=== PATIENT | female | born 1940 ===

== ENCOUNTER 2019-01-12 06:01 | Inpatient (IN) | payer SELFPAY ==
[2019-01-12 08:42] LABS: BASO % 0.7 % (0.0-2.0); EOS # 0.2 K/uL (0.0-0.7); EOS % 3.2 % (0.0-4.0); HEMOGLOBIN 12.1 g/dL (12.0-16.0); LYMPH # 1.4 K/uL (1.0-4.3); LYMPH % 25.1 % (20.0-40.0); MEAN CELL VOLUME 89.2 fl (81.0-99.0); MEAN CORPUSCULAR HEMOGLOBIN 30.3 pg (27.0-31.0); MEAN CORPUSCULAR HGB CONC 33.9 g/dL (33.0-37.0); MEAN PLATELET VOLUME 7.3 fl (7.2-11.7); MONO # 0.5 K/uL (0.0-0.8); MONO % 9.6 % (0.0-10.0); NEUT # 3.5 K/uL (1.8-7.0); NEUT % 61.4 % (50.0-75.0); RBC 3.98 Mil/uL (3.80-5.20); RED CELL DISTRIBUTION WIDTH 13.4 % (11.5-14.5); WHITE BLOOD COUNT 5.7 K/uL (4.8-10.8)
[2019-01-12 08:54] LABS: ALB/GLOB RATIO 1.4 (1.0-2.1); ALBUMIN 4.1 g/dL (3.5-5.0); ALT/SGPT 21 U/L (9-52); AST/SGOT 20 U/L (14-36); BLOOD UREA NITROGEN 14 mg/dl (7-17); CALCIUM 9.5 mg/dL (8.4-10.2); GFR NON-AFRICAN AMERICAN > 60
[2019-01-12 08:54] LABS: SQUAMOUS EPITHIAL < 1 /hpf (0-5); URINE BACTERIA RARE (<OCC); URINE BILIRUBIN NEGATIVE (NEGATIVE); URINE BLOOD NEGATIVE (NEGATIVE); URINE CLARITY SLIGHTY-CLOUDY (Clear); URINE COLOR YELLOW (YELLOW); URINE GLUCOSE (UA) NEG (NEGATIVE); URINE HYALINE CAST 0-2 /hpf (0-2); URINE LEUKOCYTE ESTERASE LARGE Leu/uL (Negative); URINE PROTEIN NEGATIVE (NEGATIVE); URINE UROBILINOGEN 0.2-1.0 mg/dL (0.2-1.0)
[2019-01-12 09:24] LABS: BARBITURATES, UR NEGATIVE (NEGATIVE); BENZODIAZEPINES, UR NEGATIVE (NEGATIVE); OPIATES, UR NEGATIVE (NEGATIVE); PHENCYCLIDINE, UR NEGATIVE (NEGATIVE)
--- NOTE | 2019-01-12 09:54 | CT ---
Date of service: 01/12/2019 PROCEDURE: CT HEAD WITHOUT CONTRAST. HISTORY: r/o ICH rule out intracranial hemorrhage. COMPARISON: None available. TECHNIQUE: Axial computed tomography images were obtained through the head/brain without intravenous contrast. Radiation dose: Total exam DLP = 781.1 mGy-cm. This CT exam was performed using one or more of the following dose reduction techniques: Automated exposure control, adjustment of the mA and/or kV according to patient size, and/or use of iterative reconstruction technique. FINDINGS: HEMORRHAGE: No acute parenchymal, subarachnoid or extra-axial hemorrhage. BRAIN: Mild to moderate diffuse and confluent chronic periventricular white matter ischemic changes seen extending peripherally into the deep and subcortical white matter both cerebral hemispheres. There is also some extension of these changes into the white matter tracts of both basal nuclei. Moderate-significant generalized volume loss. Mild vascular calcifications. VENTRICLES: No obstructive hydrocephalus. CALVARIUM: Unremarkable. PARANASAL SINUSES: Unremarkable as visualized. No significant inflammatory changes. MASTOID AIR CELLS: Unremarkable as visualized. No inflammatory changes. OTHER FINDINGS: None. IMPRESSION: No acute intracranial hemorrhage Mild to moderate diffuse and confluent chronic periventricular white matter ischemic changes seen extending peripherally into the deep and subcortical white matter both cerebral hemispheres. There is also some extension of these changes into the white matter tracts of both basal nuclei. Moderate-significant generalized volume loss.
--- NOTE | 2019-01-12 11:35 | ED PDOC ---
HPI: Psych/Substance Abuse Time Seen by Provider: 01/12/19 07:05 Chief Complaint (Nursing): Psychiatric Evaluation Chief Complaint (Provider): confusion ED Caveat: Psychotic, Language Barrier History Per: Patient, EMS History/Exam Limitations: clinical condition, language barrier Onset/Duration Of Symptoms: Unknown Current Symptoms Are (Timing): Still Present Associated Symptoms: Paranoia Involuntary Hold By: Emergency Physician Additional Complaint(s): 78yo female per EMR first time to [facility], presented via EMS, she reportedly stopped the police when she was concerned the snf she was residing at was calling immigration on her, and she heard "them saying I was sleeping around". Language barrier difficult, patient does speak some portuguese but intermixed with hebrew, [employer] translator interpreter attempted but she refused to use translator interpreter machine. Dr Carcamo who is fluent in hebrew assisted and confirmed above. States she has also lived in [place] and "[place]". Unclear medical history. Past Medical History Reviewed: Historical Data, Nursing Documentation, Vital Signs Vital Signs: Last Vital Signs Temp 97.9 F 01/12/19 06:09 Pulse 81 01/12/19 06:09 Resp 16 01/12/19 06:09 BP 193/81 H 01/12/19 06:09 Pulse Ox 97 01/12/19 06:09 - Medical History PMH: HTN - Family History Family History: States: Unknown Family Hx - Living Arrangements Living Arrangements: Other - Social History Current smoker - smoking cessation education provided: No - Immunization History Hx Tetanus Toxoid Vaccination: No Hx Influenza Vaccination: No Hx Pneumococcal Vaccination: No - Home Medications Home Medications: Ambulatory Orders Medication Instructions Recorded Risperidone [Risperdal] 1 mg PO DAILY 01/12/19 - Allergies Allergies/Adverse Reactions: Allergies Allergy/AdvReac Type Severity Reaction Status Date / Time Unobtainable Allergy Verified 06/22/18 01:44 Review of Systems Review Of Systems: ROS cannot be obtained secondary to pt's inabilty to answer questions. (confused/paranoia) Physical Exam - Reviewed Nursing Documentation Reviewed: Yes Vital Signs Reviewed: Yes - Physical Exam Appears: Positive for: Non-toxic Head Exam: Positive for: ATRAUMATIC, NORMAL INSPECTION, NORMOCEPHALIC Skin: Positive for: Normal Color, Warm, DRY Eye Exam: Positive for: EOMI, Normal appearance, PERRL ENT: Positive for: Normal ENT Inspection Neck: Positive for: Normal, Painless ROM Cardiovascular/Chest: Positive for: Regular Rate, Rhythm Respiratory: Negative for: Respiratory Distress Pulses-Radial (L): 3+/4+ Pulses-Radial (R): 3+/4+ Gastrointestinal/Abdominal: Positive for: Soft. Negative for: Tenderness Back: Positive for: Normal Inspection Extremity: Positive for: Normal ROM Neurological/Psych: Positive for: Awake, Alert, Normal Tone, Mood/Affect (anxious, pressured speech, poor insight) - Laboratory Results Result Diagrams: 01/12/19 07:30 01/12/19 07:30 Lab Results: Total Bilirubin 0.4 mg/dl (0.2-1.3) 01/12/19 07:30 AST 20 U/L (14-36) 01/12/19 07:30 ALT 21 U/L (9-52) 01/12/19 07:30 Alkaline Phosphatase 96 U/L (38-126) 01/12/19 07:30 Total Protein 6.9 G/DL (6.3-8.2) 01/12/19 07:30 Albumin 4.1 g/dL (3.5-5.0) 01/12/19 07:30 Globulin 2.8 gm/dL (2.2-3.9) 01/12/19 07:30 Albumin/Globulin Ratio 1.4 (1.0-2.1) 01/12/19 07:30 Urine Color Yellow (YELLOW) 01/12/19 07:20 Urine Clarity Slighty-cloudy (Clear) 01/12/19 07:20 Urine pH 7.0 (5.0-8.0) 01/12/19 07:20 Ur Specific [place] 1.013 (1.003-1.030) 01/12/19 07:20 Urine Protein Negative mg/dL (NEGATIVE) 01/12/19 07:20 Urine Glucose (UA) Neg mg/dL (NEGATIVE) 01/12/19 07:20 Urine Ketones Negative mg/dL (NEGATIVE) 01/12/19 07:20 Urine Blood Negative (NEGATIVE) 01/12/19 07:20 Urine Nitrate Negative (NEGATIVE) 01/12/19 07:20 Urine Bilirubin Negative (NEGATIVE) 01/12/19 07:20 Urine Urobilinogen 0.2-1.0 mg/dL (0.2-1.0) 01/12/19 07:20 Ur Leukocyte Esterase Large Luis/uL (Negative) 01/12/19 07:20 Urine RBC (Auto) 2 /hpf (0-3) 01/12/19 07:20 Urine Microscopic WBC 12 /hpf (0-5) H 01/12/19 07:20 Ur Squamous Epith Cells < 1 /hpf (0-5) 01/12/19 07:20 Urine Bacteria Rare (<OCC) 01/12/19 07:20 Hyaline Casts 0-2 /hpf (0-2) 01/12/19 07:20 Urine Yeast (Budding) Occ /hpf (NEGATIVE) H 01/12/19 07:20 - ECG O2 Sat by Pulse Oximetry: 97 Medical Decision Making Medical Decision Making: labs and CT brain ordered 1:1 Obs Accession No. : [id number] Patient Name / ID : LUIS MANUEL MCCRARY / [id number] Exam Date : 01/12/2019 08:36:23 ( Approved ) Study Comment : Sex / Age : F / 78Y Creator : Shawn Griffin MD Dictator : Shawn Griffin MD Director Women : [employer] : Shawn Griffin MD Approver2 : Report Date : 01/12/2019 09:50:58 My Comment : Date of service: 01/12/2019 PROCEDURE: CT HEAD WITHOUT CONTRAST. HISTORY: r/o ICH rule out intracranial hemorrhage. COMPARISON: None available. TECHNIQUE: Axial computed tomography images were obtained through the head/brain without intravenous contrast. Radiation dose: Total exam DLP = 781.1 mGy-cm. This CT exam was performed using one or more of the following dose reduction techniques: Automated exposure control, adjustment of the mA and/or kV according to patient size, and/or use of iterative reconstruction technique. FINDINGS: HEMORRHAGE: No acute parenchymal, subarachnoid or extra-axial hemorrhage. BRAIN: Mild to moderate diffuse and confluent chronic periventricular white matter ischemic changes seen extending peripherally into the deep and subcortical white matter both cerebral hemispheres. There is also some extension of these changes into the white matter tracts of both basal nuclei. Moderate-significant generalized volume loss. Mild vascular calcifications. VENTRICLES: No obstructive hydrocephalus. CALVARIUM: Unremarkable. PARANASAL SINUSES: Unremarkable as visualized. No significant inflammatory changes. MASTOID AIR CELLS: Unremarkable as visualized. No inflammatory changes. OTHER FINDINGS: None. IMPRESSION: No acute intracranial hemorrhage Mild to moderate diffuse and confluent chronic periventricular white matter ischemic changes seen extending peripherally into the deep and subcortical white matter both cerebral hemispheres. There is also some extension of these changes into the white matter tracts of both basal nuclei. Moderate-significant generalized volume loss. Crisis eval performed, recommended admission for stabilization, signed consent after risks and benefits explained. Patient is AAOx3. medically stable for [facility] admission at time of evaluation. Disposition - Clinical Impression Clinical Impression: Schizophrenia - Patient ED Disposition Is Patient to be Admitted: Yes Counseled Patient/Family Regarding: Studies Performed, Diagnosis, Need For Followup - Disposition Disposition Time: 10:05 Condition: FAIR - Pt Status Changed To: Hospital Disposition Of: Inpatient - Admit Certification Admit to Inpatient:: After my assessment, the patient will require hospitalization for at least two midnights. This is because of the severity of symptoms shown, intensity of services needed, and/or the medical risk in this patient being treated as an outpatient.
[2019-01-12] MEDS ORDERED: Magnesium Hydroxide Susp 30 ml UD PO PRN (14:00)
[2019-01-12] MEDS ORDERED: Alum-Mag Hydrox-Simethicone Susp (30 mL) PO PRN (14:00)
[2019-01-12] MEDS ORDERED: Bismuth Subsalicylate 262 mg/15 ml Sus (240 ml) PO PRN (14:00)
--- NOTE | 2019-01-12 14:40 | CP.PCM.CON ---
History of Present Illness - History of Present Illness History of Present Illness: 78 yo female brought in by police because of weird behaviour. Review of Systems - Review of Systems All systems: reviewed and no additional remarkable complaints except (aside from those mentioned above, 12 point system review were negative by me) Past Patient History - Infectious Disease Hx of Infectious Diseases: None - Tetanus Immunizations Tetanus Immunization: Unknown - Past Social History Smoking Status: Never Smoked Chewing Tobacco Use: No Cigar Use: No Alcohol: None Drugs: Denies Home Situation {Lives}: Homeless - CARDIAC Hx Cardiac Disorders: No - PULMONARY Hx Tuberculosis: No - NEUROLOGICAL HX Cerebrovascular Accident: No Hx Seizures: No - HEMATOLOGICAL/ONCOLOGICAL Hx Cancer: No Hx Human Immunodeficiency Virus (HIV): No - GENITOURINARY/GYNECOLOGICAL Hx Sexually Transmitted Disorders: No - PSYCHIATRIC Hx Substance Use: No - SURGICAL HISTORY Hx Surgeries: No - ANESTHESIA Hx Anesthesia: No Meds Allergies/Adverse Reactions: Allergies Allergy/AdvReac Type Severity Reaction Status Date / Time Unobtainable Allergy Verified 06/22/18 01:44 - Medications Medications: Current Medications Acetaminophen (Tylenol 325mg Tab) 650 mg PO Q4 PRN PRN Reason: Pain, moderate (4-7) Al Hydrox/Mg Hydrox/Simethicone (Maalox Plus 30 Ml) 30 ml PO Q4 PRN PRN Reason: Dyspepsia Bismuth Subsalicylate (Pepto-Bismol) 524 mg PO Q4 PRN PRN Reason: Diarrhea Cephalexin Monohydrate (Keflex) 500 mg PO Q12 CONOR; Protocol Lorazepam (Ativan) 0.5 mg PO HS PRN PRN Reason: Insomnia Stop: 01/26/19 14:01 Lorazepam (Ativan) 0.5 mg PO Q6 PRN PRN Reason: Anixety/Agitation Stop: 01/26/19 14:01 Magnesium Hydroxide (Milk Of Magnesia) 30 ml PO HS PRN PRN Reason: Constipation Trazodone HCl (Desyrel) 25 mg PO HS PRN PRN Reason: Anxiety Physical Exam - Constitutional Appears: No Acute Distress - Head Exam Head Exam: ATRAUMATIC - Eye Exam Eye Exam: absent: Scleral icterus - ENT Exam ENT Exam: Mucous Membranes Moist - Neck Exam Neck exam: Negative for: Meningismus - Respiratory Exam Respiratory Exam: absent: Rales, Rhonchi, Wheezes, Respiratory Distress - Cardiovascular Exam Cardiovascular Exam: REGULAR RHYTHM, +S1, +S2 - GI/Abdominal Exam GI & Abdominal Exam: Soft. absent: Tenderness - Rectal Exam Rectal Exam: Deferred - Neurological Exam Neurological exam: Alert - Psychiatric Exam Psychiatric exam: Normal Affect - Skin Skin Exam: Dry, Intact Results - Vital Signs Recent Vital Signs: Last Vital Signs Temp 98.7 F 01/12/19 13:27 Pulse 72 01/12/19 13:27 Resp 16 01/12/19 13:27 BP 136/65 01/12/19 13:27 Pulse Ox 96 01/12/19 12:17 - Labs Result Diagrams: 01/12/19 07:30 01/12/19 07:30 Labs: Laboratory Results - last 24 hr 01/12/19 01/12/19 01/12/19 07:20 07:20 07:30 WBC RBC Hgb Hct MCV MCH MCHC RDW Plt Count MPV Neut % (Auto) Lymph % (Auto) [place] % (Auto) Eos % (Auto) Baso % (Auto) Neut # (Auto) Lymph # (Auto) [place] # (Auto) Eos # (Auto) Baso # (Auto) Sodium 140 Potassium 3.8 Chloride 106 Carbon Dioxide 26 Anion Gap 12 BUN 14 Creatinine 0.6 L Est GFR ( Amer) > 60 Est GFR (Non-Af Amer) > 60 POC Glucose (mg/dL) Random Glucose 100 Calcium 9.5 Total Bilirubin 0.4 AST 20 ALT 21 Alkaline Phosphatase 96 Total Protein 6.9 Albumin 4.1 Globulin 2.8 Albumin/Globulin Ratio 1.4 Urine Color Yellow Urine Clarity Slighty-cloudy Urine pH 7.0 Ur Specific [place] 1.013 Urine Protein Negative Urine Glucose (UA) Neg Urine Ketones Negative Urine Blood Negative Urine Nitrate Negative Urine Bilirubin Negative Urine Urobilinogen 0.2-1.0 Ur Leukocyte Esterase Large Urine RBC (Auto) 2 Urine Microscopic WBC 12 H Ur Squamous Epith Cells < 1 Urine Bacteria Rare Hyaline Casts 0-2 Urine Yeast (Budding) Occ H Urine Opiates Screen Negative Urine Methadone Screen Negative Ur Barbiturates Screen Negative Ur Phencyclidine Scrn Negative Ur Amphetamines Screen Negative U Benzodiazepines Scrn Negative U Oth Cocaine Metabols Negative U Cannabinoids Screen Negative Alcohol, Quantitative < 10 01/12/19 01/12/19 07:30 07:34 WBC 5.7 RBC 3.98 Hgb 12.1 Hct 35.5 MCV 89.2 MCH 30.3 MCHC 33.9 RDW 13.4 Plt Count 256 MPV 7.3 Neut % (Auto) 61.4 Lymph % (Auto) 25.1 [place] % (Auto) 9.6 Eos % (Auto) 3.2 Baso % (Auto) 0.7 Neut # (Auto) 3.5 Lymph # (Auto) 1.4 [place] # (Auto) 0.5 Eos # (Auto) 0.2 Baso # (Auto) 0.0 Sodium Potassium Chloride Carbon Dioxide Anion Gap BUN Creatinine Est GFR ( Amer) Est GFR (Non-Af Amer) POC Glucose (mg/dL) 123 H Random Glucose Calcium Total Bilirubin AST ALT Alkaline Phosphatase Total Protein Albumin Globulin Albumin/Globulin Ratio Urine Color Urine Clarity Urine pH Ur Specific [place] Urine Protein Urine Glucose (UA) Urine Ketones Urine Blood Urine Nitrate Urine Bilirubin Urine Urobilinogen Ur Leukocyte Esterase Urine RBC (Auto) Urine Microscopic WBC Ur Squamous Epith Cells Urine Bacteria Hyaline Casts Urine Yeast (Budding) Urine Opiates Screen Urine Methadone Screen Ur Barbiturates Screen Ur Phencyclidine Scrn Ur Amphetamines Screen U Benzodiazepines Scrn U Oth Cocaine Metabols U Cannabinoids Screen Alcohol, Quantitative Assessment & Plan (1) Schizophrenia Status: Acute Comment: psyche is managing (2) UTI (urinary tract infection) Status: Acute Comment: continue Keflex. follow up urine culture
--- NOTE | 2019-01-12 15:15 | PCM.BM ---
<Shalonda Alonzo - Last Filed: 01/12/19 15:23> Treatment Plan Problems - Problems identified on initial assessmt delusions Date Initiated: 01/12/19 Time Initiated: 15:13 Date resolved: 01/18/19 Assessment reference: HP Status: Active Priority: 1 thought process Date Initiated: 01/12/19 Time Initiated: 15:14 Date resolved: 01/18/19 Assessment reference: HP Priority: 2 knowledge defficit Date Initiated: 01/12/19 Time Initiated: 15:23 Date resolved: 01/18/19 Assessment reference: HP Status: Active Priority: 3 Treatment assets and liabiliti Patient Assests: cooperative, physically healthy Patient Liabilities: live alone, medical problems, language/speech - Milieu Protocol Maintain good personal hygiene: every shift Encourage regular showers, every shift Remind patient to perform daily oral care, every shift Assist patient to perform ADL's Maintain personal safety: every shift Educate patient to report safety concerns to staff, every shift Monitor environment for contraband/sharps Medication safety: Monitor for expected outcome, potential side effects: every shift, Assess barriers to learning: every shift, Assess readiness for medication education: every shift <Otto Luque - Last Filed: 01/13/19 13:48> Family Contact Family involvement: Famliy/SO not involved Family contact name: Pt's daughter resides in [facility]. Family contacted how many times per week?: 2 - Goals for Treatment Patient goals for treatment: Pt lacks insight into her current illness and cannot speak with staff due to language barrier so no specific goals for treatment could be obtained Discharge/Continuing Care - Education Needs Education Needs: Patient Medication, Patient Diagnosis/Disease Process, Patient Coping Skills, Patient Aftercare Safety Plan - Discharge Discharge Criteria: Tolerates medication w/o severe side effects, Free of paranoid thoughts, Free of agitation, Normal sleep pattern, Ability to care for self, Reduction of target symptoms Discharge to:: [facility] - Treatment Team Participation Discussed with Family/SO: No Was Patient/Family/SO present at Treatment Team Meeting: Yes <Brittani Bertrand - Last Filed: 01/14/19 11:26> - Diagnosis (1) Schizophrenia Status: Acute Interventions: Medication management, Individual and group therapy, Psychoeducation 01/14/19 11:26 <Norma Yin - Last Filed: 01/14/19 14:52> Family Contact Family involvement: Famliy/SO not involved Discharge/Continuing Care - Education Needs Education Needs: Patient Medication, Patient Diagnosis/Disease Process, Patient Coping Skills, Patient Placement options, Patient Community resources, Patient Uses of Medical Equipment, Patient Health Practices/Safety, Patient Personal Hygiene/Grooming, Patient Aftercare Safety Plan - Discharge Discharge Criteria: Tolerates medication w/o severe side effects, Free of paranoid thoughts, Free of agitation, Normal sleep pattern, Ability to care for self, Reduction of target symptoms Discharge to:: [facility] - Additional Comments 01/14/19 14:37 Pt seen and discussed in team meeting Pt is Latvian speaking [employer] Interpret # [id number] used. Call Specialist named Twyla attempted to explain to pt the purpose of the team meeting; however, per per diem interpreter pt was difficult to engage in conversation. Call Specialist reported that pt stated "my life is miserable and I'm going to call the police and the police is going to come." Reportedly, pt also stated that someone i coming here to pick her up. Interdisciplinary team attempted to gather additional information form pt via per diem interpreter; however, pt refused to answer any of the questions and became restless and irritable. Per per diem interpreter pt was using inappropriate language and uncooperative. Interdisciplinary team will try to assess pt tomorrow. Tx plan reviewed amongst interdisciplinary team members. SW to contact community resources provided by ED and pt at time of ED assessment. SW to confirm medications and obtain collateral information. - Treatment Team Participation Discussed with Family/SO: No Was Patient/Family/SO present at Treatment Team Meeting: Yes
--- NOTE | 2019-01-12 16:40 | RAD ---
Date of service: 01/12/2019 HISTORY: SOB COMPARISON: No prior. TECHNIQUE: 1 view obtained. FINDINGS: LUNGS: Multiple tiny radiopaque densities right upper lobe likely representing calcifications are or calcified granulomata possibly in a localized area of chronic bronchiectasis. Clinical correlation recommended. Follow-up nonemergent CT scan of the chest could be performed for further evaluation. PLEURA: No significant pleural effusion identified, no pneumothorax apparent. CARDIOVASCULAR: Aortic atherosclerotic calcification present. Heart size within range of normal. Additionally, there are calcified mediastinal hilar lymph nodes as well suggesting prior exposure to a granulomatous disease process. Clinical correlation recommended. OSSEOUS STRUCTURES: No significant abnormalities. VISUALIZED UPPER ABDOMEN: Normal. OTHER FINDINGS: None. IMPRESSION: No acute consolidation. Multiple tiny radiopaque densities right upper lobe likely representing calcifications are or calcified granulomata possibly in a localized area of chronic bronchiectasis. Clinical correlation recommended. Follow-up nonemergent CT scan of the chest could be performed for further evaluation.
[2019-01-13 08:19] LABS: IRON 105 ug/dL (37-170)
[2019-01-13 08:29] LABS: % IRON SATURATION 37 % (20-55); TOTAL IRON BINDING CAPACITY 279 ug/dL (250-450)
[2019-01-13 11:32] VITALS: O2SAT 97
--- NOTE | 2019-01-13 12:18 | PCM.PSYCH ---
Initial Psychiatric Evaluation - Initial Psychiatric Evaluation History of Present Illness and Precipitating Events: pt is 78 ys old Lebanese female with unclear previous psychiatric history brought to ER by police after she was found wandering on the street pt on evaluation in ER presented with paranoid delusions, reported that she feels that the immigration is after her and that people on the street are targetiong her the senior copywriter attempted to evaluate patient using VOYCE , pt became very irritable and paranoid, indicated that she understands that this is a machine from the immigration and refused to proceed with the interview , pt presenting with delusions of persecution , irritable mood and affect, speaking little palestinian denied command hallucinations , denied suicidal or homicidal ideation Information obtained by treating physician in ER PT REPORTED THAT SHE HAS NO FAMILY IN THIS COUNTRY SHE REPORTED THAT PEOPLE ARE CONSTANTLY LOOKING AT HER IN A WIERD WAY AND SHE BELIEVES THAT SHE IS BEING FOLLOWED. THE PT REPORTED THAT SHE WAS PREVIOUSLY HOSPITALIZED IN [place] AND SHE ATTENDS THE OUTPATIENT PROGRAM AT [place]. SHE REPORTED SHE HAS AN APPOINTMENT IN JANUARY BUT BOLIVAR S NOT REMEMBER WHEN EXACTLY Current Medications: Active Medications Generic Name Dose Route Start Last Admin Trade Name Freq PRN Reason Stop Dose Admin Acetaminophen 650 mg 01/12/19 14:00 Tylenol 325mg Tab PO Q4 PRN Pain, moderate (4-7) Al Hydrox/Mg Hydrox/Simethicone 30 ml 01/12/19 14:00 Maalox Plus 30 Ml PO Q4 PRN Dyspepsia Bismuth Subsalicylate 524 mg 01/12/19 14:00 Pepto-Bismol PO Q4 PRN Diarrhea Cephalexin Monohydrate 500 mg 01/12/19 21:00 01/13/19 08:50 Keflex PO 500 mg Q12 CONOR Administration Protocol Lorazepam 0.5 mg 01/12/19 14:00 Ativan PO 01/26/19 14:01 HS PRN Insomnia Lorazepam 0.5 mg 01/12/19 14:00 Ativan PO 01/26/19 14:01 Q6 PRN Anixety/Agitation Magnesium Hydroxide 30 ml 01/12/19 14:00 Milk Of Magnesia PO HS PRN Constipation Risperidone 0.5 mg 01/13/19 11:30 Risperdal M-Tab PO DAILY CONOR Risperidone 0.5 mg 01/13/19 22:00 Risperdal M-Tab PO HS CONOR Trazodone HCl 25 mg 01/12/19 14:09 Desyrel PO HS PRN Anxiety Past Psychiatric History - Past Psychiatric History Explanation of prior treatment: PER PT HX OF PREVIOUS HOSPITALIZATION AT [facility] Pertinent Medical Hx (Current Medical&Sleep Prob, Allergies): Allergies Allergy/AdvReac Type Severity Reaction Status Date / Time Unobtainable Allergy Verified 06/22/18 01:44 Risperidone [Risperdal] 1 mg PO DAILY 01/12/19 Mental Status Examination - Personal Presentation Personal Presentation: Looks stated age - Affect Affect: Constricted - Motor Activity Motor Activity: Psychomotor Agitation - Reliability in Providing Information Reliability in Providing Information: Poor, due to alteration in thoughts, Poor, due to altered mood - Speech Speech: Tangential - Mood Mood: Anxious - Formal Thought Process Formal Thought Process: Delusions, Paranoia - Cognitive Functions Orientation: Person Sensorium: Alert Attention/Concentration: Easily distracted Judgement: Imparied, as evidence by: Poor judgement, Imparied, as evidence by: Lack of insight into illness - Risk Risk: Diminished functioning - Strength & Assets Inventory Strength & Assets Inventory: Life experience - Limitations Additional comments: POOR SOCIAL SUPPORT DSM 5 DX - DSM 5 DSM 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
[2019-01-13] MEDS: Risperidone M tab 0.5MG PO SCH (13:21)
--- NOTE | 2019-01-13 17:50 | CARD ---
APPROVED REPORT Date of service: 01/12/2019 EKG Measurement Heart [id number] <Conclusion> Normal sinus rhythm Incomplete right bundle branch block Otherwise normal ECG
[2019-01-13] MEDS ORDERED: Risperidone M tab 0.5MG PO SCH (22:00)
[2019-01-14] MEDS: Risperidone M tab 0.5MG PO SCH (09:17)
--- NOTE | 2019-01-14 11:23 | PCM.PYCHPN ---
Psychiatric Progress Note - Psychiatric Progress Note Patient seen today, length of contact: Pt evaluated, case discussed w/ team, chart reviewed Patient Chief Complaint: "I'm going to call the police." Problems Identified/Issues Discussed: Fitness Consultant and treatment team attempted to speak with the patient using diplomatic interpreter/translator #[id number]. Patient refused to speak w/ staff writer. She was disorganized, threatening to call the police, cursing at staff. Refusing to speak taiwanese or use the diplomatic interpreter/translator. She left the treatment team meeting angrily. Patient is labile and difficult to direct. Medication Change: Yes (Increase Risperdal) Medical Record Reviewed: Yes Consults ordered or reviewed: Medicine consult Mental Status Examination - Cognitive Function Orientation: Person Decription of patient's judgement and insights: Poor I/J - Mood Mood: Anxious - Affect Affect: Other (Labile, irritable) - Speech Speech: Loud - Formal Thought Process Formal Thought Process: Delusions, Paranoia, Loosening of associations Psychotic Thoughts and Behaviors: +Paranoia - Suicidal Ideation Suicidal Ideation: No - Homicidal Ideation Homicidal Ideation: No Goal/Treatment Plan - Goal/Treatment Plan Need for Continued Stay: Remain at risks for inpatient hospitalization, Discharge may exacerbated symptoms Progress Toward Problem(s) and Goals/Treatment Plan: Schizophrenia vs schizoaffective disorder vs Major neurocognitive disorder w/ psychosis -Increase Risperdal -Medicine consult -Individual and group therapy -Psychoeducation -Disposition planning
[2019-01-14] MEDS: Risperidone M tab 1 MG PO SCH (21:05)
[2019-01-14 21:56] LABS: FOLATE 18.2 ng/mL
[2019-01-15] MEDS: Risperidone M tab 1 MG PO SCH ×2 (08:30→21:09)
--- NOTE | 2019-01-15 09:21 | PCM.PYCHPN ---
Psychiatric Progress Note - Psychiatric Progress Note Patient seen today, length of contact: Pt evaluated, case discussed w/ team, chart reviewed Patient Chief Complaint: "I'm going to call the police." Problems Identified/Issues Discussed: Patient continues to be irritable, paranoid, unwilling to engage in interview with telegraphic typewriter repairer. She continues to threaten to call the police. Refusing to speak tamazight or use the percher. Medication Change: Yes (Increase Risperdal) Medical Record Reviewed: Yes Consults ordered or reviewed: Medicine consult Mental Status Examination - Cognitive Function Decription of patient's judgement and insights: Poor I/J - Mood Mood: Anxious - Affect Affect: Other (Labile, irritable) - Speech Speech: Loud - Formal Thought Process Formal Thought Process: Delusions, Paranoia, Loosening of associations Psychotic Thoughts and Behaviors: +Paranoia - Suicidal Ideation Suicidal Ideation: No - Homicidal Ideation Homicidal Ideation: No Goal/Treatment Plan - Goal/Treatment Plan Need for Continued Stay: Remain at risks for inpatient hospitalization, Discharge may exacerbated symptoms Progress Toward Problem(s) and Goals/Treatment Plan: Schizophrenia vs schizoaffective disorder vs Major neurocognitive disorder w/ psychosis -Increase Risperdal -Medicine consult -Individual and group therapy -Psychoeducation -Obtain collateral history -Disposition planning
[2019-01-16] MEDS: Risperidone M tab 1 MG PO SCH (08:34)
--- NOTE | 2019-01-16 11:35 | PCM.PYCHPN ---
Psychiatric Progress Note - Psychiatric Progress Note Patient seen today, length of contact: Pt evaluated, case discussed w/ team, chart reviewed Patient Chief Complaint: "I'm going to call the police." Problems Identified/Issues Discussed: Patient continues to be irritable, labile, paranoid, refusing to use the manager wellness services due to paranoia. Refusing to speak Tamazight w/ specifications writer. As per medical records obtained, patient has a history of treatment w/ Risperdal and also a history of treatment with Zyprexa 15 mg PO HS. Medication Change: Yes (Increase Risperdal) Medical Record Reviewed: Yes Consults ordered or reviewed: Medicine consult Mental Status Examination - Cognitive Function Orientation: Person - Mood Mood: Anxious - Affect Affect: Other (Labile, irritable) - Speech Speech: Loud - Formal Thought Process Formal Thought Process: Delusions, Paranoia, Loosening of associations Psychotic Thoughts and Behaviors: +Paranoia - Suicidal Ideation Suicidal Ideation: No - Homicidal Ideation Homicidal Ideation: No Goal/Treatment Plan - Goal/Treatment Plan Need for Continued Stay: Remain at risks for inpatient hospitalization, Discharge may exacerbated symptoms Progress Toward Problem(s) and Goals/Treatment Plan: Schizophrenia r/o Major neurocognitive disorder -Increase Risperdal -Medicine consult -Individual and group therapy -Psychoeducation -Disposition planning
[2019-01-16] MEDS: Risperidone M TAB 2 MG PO SCH (21:09)
[2019-01-17] MEDS: Risperidone M tab 1 MG PO SCH (08:09)
--- NOTE | 2019-01-17 10:07 | PCM.PYCHPN ---
Psychiatric Progress Note - Psychiatric Progress Note Patient seen today, length of contact: Pt evaluated, case discussed w/ team, chart reviewed Patient Chief Complaint: "I'm going to call the police." Problems Identified/Issues Discussed: Patient is calmer and less irritable, but she continues to be paranoid and continues to refuse to use the paver operator due to acute paranoia. No adverse effects to medications observed. Medication Change: No Medical Record Reviewed: Yes Consults ordered or reviewed: Medicine consult Mental Status Examination - Cognitive Function Orientation: Person - Mood Mood: Anxious - Affect Affect: Other (Labile, irritable) - Speech Speech: Loud - Formal Thought Process Formal Thought Process: Delusions, Paranoia, Loosening of associations Psychotic Thoughts and Behaviors: +Paranoia - Suicidal Ideation Suicidal Ideation: No - Homicidal Ideation Homicidal Ideation: No Goal/Treatment Plan - Goal/Treatment Plan Need for Continued Stay: Remain at risks for inpatient hospitalization, Discharge may exacerbated symptoms Progress Toward Problem(s) and Goals/Treatment Plan: Schizophrenia; r/o Major neurocognitive disorder -Continue Risperdal -Medicine consult -Individual and group therapy -Psychoeducation -Disposition planning
--- NOTE | 2019-01-17 15:50 | PCM.BM ---
Treatment Plan Problems - Problems identified on initial assessmt delusions Date Initiated: 01/12/19 Time Initiated: 15:13 Date resolved: 01/18/19 Assessment reference: HP Status: Active Priority: 1 thought process Date Initiated: 01/12/19 Time Initiated: 15:14 Date resolved: 01/18/19 Assessment reference: HP Status: Active Priority: 2 knowledge defficit Date Initiated: 01/12/19 Time Initiated: 15:23 Date resolved: 01/18/19 Assessment reference: HP Status: Active Priority: 3 impaired communication Date Initiated: 01/12/19 Time Initiated: 15:50 Date resolved: 01/28/19 Assessment reference: NA Status: Active Priority: 4 Treatment assets and liabiliti Patient Assests: cooperative, physically healthy Patient Liabilities: live alone, medical problems, language/speech - Milieu Protocol Maintain good personal hygiene: every shift Encourage regular showers, every shift Remind patient to perform daily oral care, every shift Assist patient to perform ADL's Maintain personal safety: every shift Educate patient to report safety concerns to staff, every shift Monitor environment for contraband/sharps Medication safety: Monitor for expected outcome, potential side effects: every shift, Assess barriers to learning: every shift, Assess readiness for medication education: every shift Milieu Narrative: Schizophrenia; r/o Major neurocognitive disorder -Continue Risperdal -Medicine consult -Individual and group therapy -Psychoeducation -Disposition planning Family Contact Family involvement: Famliy/SO not involved - Goals for Treatment Patient goals for treatment: Pt lacks insight into her current illness and cannot speak with staff due to language barrier so no specific goals for treatment could be obtained Discharge/Continuing Care - Education Needs Education Needs: Patient Medication, Patient Diagnosis/Disease Process, Patient Coping Skills, Patient Placement options, Patient Community resources, Patient Uses of Medical Equipment, Patient Health Practices/Safety, Patient Personal Hygiene/Grooming, Patient Aftercare Safety Plan - Discharge Discharge Criteria: Tolerates medication w/o severe side effects, Free of paranoid thoughts, Free of agitation, Normal sleep pattern, Ability to care for self, Reduction of target symptoms Discharge to:: Residential - Additional Comments 01/14/19 14:37 Pt seen and discussed in team meeting Pt is Romanian speaking Ria Interpret # [id number] used. Handle Bender named Twyla attempted to explain to pt the purpose of the team meeting; however, per lang interpreter pt was difficult to engage in conversation. Handle Bender reported that pt stated "my life is miserable and I'm going to call the police and the police is going to come." Reportedly, pt also stated that someone i coming here to pick her up. Interdisciplinary team attempted to gather additional information form pt via lang interpreter; however, pt refused to answer any of the questions and became restless and irritable. Per lang interpreter pt was using inappropriate language and uncooperative. Interdisciplinary team will try to assess pt tomorrow. Tx plan reviewed amongst interdisciplinary team members. SW to contact community resources provided by ED and pt at time of ED assessment. SW to confirm medications and obtain collateral information. - Treatment Team Participation Patient/Family/SO Statement: Schizophrenia; r/o Major neurocognitive disorder -Continue Risperdal -Medicine consult -Individual and group therapy -Psychoeducation -Disposition planning Discussed with Family/SO: No Was Patient/Family/SO present at Treatment Team Meeting: Yes
[2019-01-18] MEDS: Risperidone M TAB 2 MG PO SCH (00:06)
[2019-01-18] MEDS: Risperidone M tab 1 MG PO SCH (08:32)
--- NOTE | 2019-01-18 10:28 | PCM.PYCHPN ---
Psychiatric Progress Note - Psychiatric Progress Note Patient seen today, length of contact: Pt evaluated, case discussed w/ team, chart reviewed Patient Chief Complaint: "I'm okay." Problems Identified/Issues Discussed: Patient is less irritable/labile. She continues to refuse to use the industrial relations representative service due to acute paranoia. She did speak with staff through a friend. She reports that she does not want to continue taking Risperdal because she believes it disrupts her sleep. She is agreeble to restarting Zyprexa, which she previously took a few months ago at 15 mg. Medication Change: Yes (Stop Risperdal, Start Zyprexa) Medical Record Reviewed: Yes Consults ordered or reviewed: Medicine consult Mental Status Examination - Cognitive Function Decription of patient's judgement and insights: Poor I/J - Mood Mood: Anxious - Affect Affect: Other (Labile, irritable) - Speech Speech: Loud - Formal Thought Process Formal Thought Process: Paranoia, Loosening of associations Psychotic Thoughts and Behaviors: +Paranoia - Suicidal Ideation Suicidal Ideation: No - Homicidal Ideation Homicidal Ideation: No Goal/Treatment Plan - Goal/Treatment Plan Need for Continued Stay: Remain at risks for inpatient hospitalization, Discharge may exacerbated symptoms Progress Toward Problem(s) and Goals/Treatment Plan: Schizophrenia -Stop Risperdal, patient not agreeable to taking anymore; will restart Zyprexa, patient was previously treated w/ 15 mg -Medicine consult -Individual and group therapy -Psychoeducation -Disposition planning
[2019-01-19] MEDS: Risperidone M TAB 2 MG PO SCH ×2 (09:34→21:17)
--- NOTE | 2019-01-19 10:19 | PCM.PYCHPN ---
Psychiatric Progress Note - Psychiatric Progress Note Patient seen today, length of contact: Pt evaluated, case discussed w/ team, chart reviewed Patient Chief Complaint: "I'm okay." Problems Identified/Issues Discussed: Patient changed her mind about the medications. She refused Zyprexa, but is now willing to take Risperdal again. She is less irritable, but continues to refuse to use the translatory machine. Medication Change: Yes (Restart Risperdal) Medical Record Reviewed: Yes Consults ordered or reviewed: Medicine consult Mental Status Examination - Cognitive Function Decription of patient's judgement and insights: Chronic limitations in I/J - Mood Mood: Anxious - Affect Affect: Broad - Speech Speech: Loud - Formal Thought Process Formal Thought Process: Paranoia, Loosening of associations Psychotic Thoughts and Behaviors: +Paranoia - Suicidal Ideation Suicidal Ideation: No - Homicidal Ideation Homicidal Ideation: No Goal/Treatment Plan - Goal/Treatment Plan Need for Continued Stay: Remain at risks for inpatient hospitalization, Discharge may exacerbated symptoms Progress Toward Problem(s) and Goals/Treatment Plan: Schizophrenia -Restart Risperdal -Medicine consult -Individual and group therapy -Psychoeducation -Disposition planning
[2019-01-20] MEDS: Risperidone M TAB 2 MG PO SCH ×2 (08:49→21:08)
--- NOTE | 2019-01-20 09:21 | PCM.PYCHPN ---
Psychiatric Progress Note - Psychiatric Progress Note Patient seen today, length of contact: Pt evaluated, case discussed w/ team, chart reviewed Patient Chief Complaint: "I'm okay." Problems Identified/Issues Discussed: Patient currently more irritable. She is refusing medications at this time. She continues to refuse to use the key carrier service and continues to be acutely paranoid. Medication Change: No Medical Record Reviewed: Yes Consults ordered or reviewed: Medicine consult Mental Status Examination - Cognitive Function Orientation: Person - Mood Mood: Anxious - Affect Affect: Broad - Speech Speech: Loud - Formal Thought Process Formal Thought Process: Paranoia, Loosening of associations Psychotic Thoughts and Behaviors: +Paranoia - Suicidal Ideation Suicidal Ideation: No - Homicidal Ideation Homicidal Ideation: No Goal/Treatment Plan - Goal/Treatment Plan Need for Continued Stay: Remain at risks for inpatient hospitalization, Discharge may exacerbated symptoms Progress Toward Problem(s) and Goals/Treatment Plan: Schizophrenia -Continue Risperdal -Medicine consult -Individual and group therapy -Psychoeducation -Disposition planning
--- NOTE | 2019-01-20 16:26 | PCM.BM ---
Treatment Plan Problems - Problems identified on initial assessmt delusions Date Initiated: 01/12/19 Time Initiated: 15:13 Date resolved: 01/18/19 Assessment reference: HP Status: Active Priority: 1 thought process Date Initiated: 01/12/19 Time Initiated: 15:14 Date resolved: 01/18/19 Assessment reference: HP Status: Active Priority: 2 knowledge defficit Date Initiated: 01/12/19 Time Initiated: 15:23 Date resolved: 01/18/19 Assessment reference: HP Status: Active Priority: 3 impaired communication Date Initiated: 01/12/19 Time Initiated: 15:50 Date resolved: 01/28/19 Assessment reference: NA Status: Active Priority: 4 Medication nonadherence Date Initiated: 01/20/19 Time Initiated: 16:26 Assessment reference: NA Status: Active Treatment assets and liabiliti Patient Assests: cooperative, physically healthy Patient Liabilities: live alone, medical problems, language/speech - Milieu Protocol Maintain good personal hygiene: every shift Encourage regular showers, every shift Remind patient to perform daily oral care, every shift Assist patient to perform ADL's Maintain personal safety: every shift Educate patient to report safety concerns to staff, every shift Monitor environment for contraband/sharps Medication safety: Monitor for expected outcome, potential side effects: every shift, Assess barriers to learning: every shift, Assess readiness for medication education: every shift Milieu Narrative: Schizophrenia -Continue Risperdal -Medicine consult -Individual and group therapy -Psychoeducation -Disposition planning Family Contact Family involvement: Famliy/SO not involved - Goals for Treatment Patient goals for treatment: Pt lacks insight into her current illness and cannot speak with staff due to language barrier so no specific goals for treatment could be obtained Discharge/Continuing Care - Education Needs Education Needs: Patient Medication, Patient Diagnosis/Disease Process, Patient Coping Skills, Patient Placement options, Patient Community resources, Patient Uses of Medical Equipment, Patient Health Practices/Safety, Patient Personal Hygiene/Grooming, Patient Aftercare Safety Plan - Discharge Discharge Criteria: Tolerates medication w/o severe side effects, Free of paranoid thoughts, Free of agitation, Normal sleep pattern, Ability to care for self, Reduction of target symptoms Discharge to:: [facility] - Additional Comments 01/14/19 14:37 Pt seen and discussed in team meeting Pt is Greenlandic speaking Ria Interpret # [id number] used. Library Sales Consultant named Twyla attempted to explain to pt the purpose of the team meeting; however, per interpreter and translator pt was difficult to engage in conversation. Library Sales Consultant reported that pt stated "my life is miserable and I'm going to call the police and the police is going to come." Reportedly, pt also stated that someone i coming here to pick her up. Interdisciplinary team attempted to gather additional information form pt via interpreter and translator; however, pt refused to answer any of the questions and became restless and irritable. Per interpreter and translator pt was using inappropriate language and uncooperative. Interdisciplinary team will try to assess pt tomorrow. Tx plan reviewed amongst interdisciplinary team members. SW to contact community resources provided by ED and pt at time of ED assessment. SW to confirm medications and obtain collateral information. - Treatment Team Participation Patient/Family/SO Statement: Schizophrenia -Continue Risperdal -Medicine consult -Individual and group therapy -Psychoeducation -Disposition planning Discussed with Family/SO: No Was Patient/Family/SO present at Treatment Team Meeting: Yes
[2019-01-21] MEDS: Risperidone M TAB 2 MG PO SCH (08:31)
--- NOTE | 2019-01-21 10:25 | PCM.PYCHPN ---
Psychiatric Progress Note - Psychiatric Progress Note Patient seen today, length of contact: Pt evaluated, case discussed w/ team, chart reviewed Patient Chief Complaint: "I'm not going to take your medications." Problems Identified/Issues Discussed: Patient continues to refuse treatment. She refuses to take medications, despite offering her several different medications. She is paranoid about the treatment and is convinced that the medications are harming her body and doesn't trust that we are giving her the same medication, despite her being treated with Risperdal in the past. Patient met in treatment team using lab specialist Twyla [id number]. Patient does not want to continue to stay in the hospital. She is refusing to sign any paperwork. Patient informed that she will be screened for involuntary psychiatric admission. Medication Change: No Medical Record Reviewed: Yes Consults ordered or reviewed: Medicine consult Mental Status Examination - Cognitive Function Orientation: Person, Place, Situation, Time - Mood Mood: Anxious - Affect Affect: Broad - Speech Speech: Loud - Formal Thought Process Formal Thought Process: Paranoia, Loosening of associations Psychotic Thoughts and Behaviors: +Paranoia - Suicidal Ideation Suicidal Ideation: No - Homicidal Ideation Homicidal Ideation: No Goal/Treatment Plan - Goal/Treatment Plan Need for Continued Stay: Remain at risks for inpatient hospitalization, Discharge may exacerbated symptoms Progress Toward Problem(s) and Goals/Treatment Plan: Schizophrenia -Patient refusing treatment and medications; patient does not want to be in the hospital at this time; will screen for involuntary psychiatric admission -Medicine consult -Individual and group therapy -Psychoeducation -Disposition planning
--- NOTE | 2019-01-21 15:26 | PCM.BM ---
Treatment Plan Problems - Problems identified on initial assessmt delusions Date Initiated: 01/12/19 Time Initiated: 15:13 Date resolved: 01/18/19 Assessment reference: HP Status: Active Priority: 1 thought process Date Initiated: 01/12/19 Time Initiated: 15:14 Date resolved: 01/18/19 Assessment reference: HP Status: Active Priority: 2 knowledge defficit Date Initiated: 01/12/19 Time Initiated: 15:23 Date resolved: 01/18/19 Assessment reference: HP Status: Active Priority: 3 impaired communication Date Initiated: 01/12/19 Time Initiated: 15:50 Date resolved: 01/28/19 Assessment reference: NA Status: Active Priority: 4 Medication nonadherence Date Initiated: 01/20/19 Time Initiated: 16:26 Assessment reference: NA Status: Active Treatment assets and liabiliti Patient Assests: cooperative, physically healthy Patient Liabilities: live alone, medical problems, language/speech - Milieu Protocol Maintain good personal hygiene: every shift Encourage regular showers, every shift Remind patient to perform daily oral care, every shift Assist patient to perform ADL's Maintain personal safety: every shift Educate patient to report safety concerns to staff, every shift Monitor environment for contraband/sharps Medication safety: Monitor for expected outcome, potential side effects: every shift, Assess barriers to learning: every shift, Assess readiness for medication education: every shift Milieu Narrative: Schizophrenia -Patient refusing treatment and medications; patient does not want to be in the hospital at this time; will screen for involuntary psychiatric admission -Medicine consult -Individual and group therapy -Psychoeducation -Disposition planning Family Contact Family involvement: Famliy/SO not involved - Goals for Treatment Patient goals for treatment: Pt lacks insight into her current illness and cannot speak with staff due to language barrier so no specific goals for treatment could be obtained Discharge/Continuing Care - Education Needs Education Needs: Patient Medication, Patient Diagnosis/Disease Process, Patient Coping Skills, Patient Placement options, Patient Community resources, Patient Uses of Medical Equipment, Patient Health Practices/Safety, Patient Personal Hygiene/Grooming, Patient Aftercare Safety Plan - Discharge Discharge Criteria: Tolerates medication w/o severe side effects, Free of paranoid thoughts, Free of agitation, Normal sleep pattern, Ability to care for self, Reduction of target symptoms Discharge to:: [facility] - Additional Comments 01/14/19 14:37 Pt seen and discussed in team meeting Pt is [place] speaking Ria Interpret # [id number] used. Baggage Inspector named Twyla attempted to explain to pt the purpose of the team meeting; however, per cryptographic technician pt was difficult to engage in conversation. Baggage Inspector reported that pt stated "my life is miserable and I'm going to call the police and the police is going to come." Reportedly, pt also stated that someone i coming here to pick her up. Interdisciplinary team atte mpted to gather additional information form pt via cryptographic technician; however, pt refused to answer any of the questions and became restless and irritable. Per cryptographic technician pt was using inappropriate language and uncooperative. Interdisciplinary team will try to assess pt tomorrow. Tx plan reviewed amongst interdisciplinary team members. SW to contact community resources provided by ED and pt at time of ED assessment. SW to confirm medications and obtain collateral information. - Treatment Team Participation Patient/Family/SO Statement: Schizophrenia -Patient refusing treatment and medications; patient does not want to be in the hospital at this time; will screen for involuntary psychiatric admission -Medicine consult -Individual and group therapy -Psychoeducation -Disposition planning Discussed with Family/SO: No Was Patient/Family/SO present at Treatment Team Meeting: Yes Treatment Plan Review Patient participation: Yes Family/SO/Caregiver participation: No Additional Comments: Pt seen and discussed in team meeting. Audience.fmtri Baggage Inspector used, ID # [id number] and spoke with Twyla. Via cryptographic technician pt presented to be focused on her high blood pressure medications and wanting to take her own medications. Pt explained that her medications are in the pharmacy and she must take the hospital medications. Pt reported that the hospital medications causes her to have rapid heart rate and shortness of breathe. Psycho-education provided by treating physician. Pt is less paranoid in the context that she agreed to use the [employer] Baggage Inspector services where in the past she refused. However, pt presents with paranoia towards her medications and her treatment. Pt reported that sometimes she feels uncomfortable and scared, but unable to state why. Pt presents with disorganized thought process, loose of association, circumstantial and difficult to re-direct. Pt would not answer a questions directly. Pt continuously asking about her medications and her clothes, despite being told that she can take her own medications while in the hospital. When asked if she wanted ot return to [facility] in [place], pt would not directly answer the question. Pt's medications and social issues reviewed. Tx plan reviewed and discussed. Pt's medications discussed and pt continues to refuse to take medications. Pt informed that she will be referred to [facility] for an evaluation for possible involuntary admission. Duration of team meeting was 20 minutes. SW will continue to follow case. - Problem delusions Date Initiated: 01/12/19 Time Initiated: 15:13 Progress toward outcomes: unchanged (Pt is paranoid and refuses to take her medications in the hospital.) thought process Date Initiated: 01/12/19 Time Initiated: 15:14 Progress toward outcomes: unchanged (Pt presents with disorganized thought porcess, difficult to re-direct.) knowledge defficit Date Initiated: 01/12/19 Time Initiated: 15:23 Progress toward outcomes: unchanged impaired communication Date Initiated: 01/12/19 Time Initiated: 15:50 Progress toward outcomes: unchanged (Due to language barrier, it is difficult o communicate with pt. Today pt agreed to use the [employer] Baggage Inspector services.) Medication nonadherence Date Initiated: 01/12/19 Time Initiated: 16:26 Progress toward outcomes: unchanged (Pt continues to refuse medications.) - Discharge / Continuing Care Discharge to:: Other ([facility] in [place]) Behavioral Health Services: Outpatient therapy Health Needs: Follow up care/test, Doctor appointments, Medications/Rx, Educati onal, Recreational/Social
--- NOTE | 2019-01-22 10:16 | PCM.PYCHPN ---
Psychiatric Progress Note - Psychiatric Progress Note Patient seen today, length of contact: Pt evaluated, case discussed w/ team, chart reviewed Patient Chief Complaint: "I'm okay." Problems Identified/Issues Discussed: Patient was screened by [facility] and found to not meet criteria for involuntary psychiatric admission. Patient currently A + O x 3. She was agreeable to using the padded products inspector trimmer (Twyla [id number]). She denies acute paranoia to play writer. She denies acute depression/anxiety/AH/VH/SI/HI. She was informed that she will be discharged tomorrow. She is calm and cooperative, with good sleep/appetite and no current behavioral disturbances. Medication Change: No Medical Record Reviewed: Yes Consults ordered or reviewed: Medicine consult Mental Status Examination - Cognitive Function Orientation: Person, Place, Situation, Time Decription of patient's judgement and insights: Improving I/J - Mood Mood: Neutral - Affect Affect: Broad - Speech Speech: Appropriate - Formal Thought Process Psychotic Thoughts and Behaviors: +Denies acute AH/VH/paranoia - Suicidal Ideation Suicidal Ideation: No - Homicidal Ideation Homicidal Ideation: No Goal/Treatment Plan - Goal/Treatment Plan Need for Continued Stay: Discharge may exacerbated symptoms Progress Toward Problem(s) and Goals/Treatment Plan: Schizophrenia -Patient was screened for involuntary psychiatric admission and found to not meet criteria for involuntary commitment. She denies acute depression/anxiety/paranoia/psychosis. She will be observed overnight and discharged tomorrow. -Continue Risperdal -Medicine consult -Individual and group therapy -Psychoeducation -Disposition planning
[2019-01-23 06:30] VITALS: BP 149/79; PULSE 78; RESP 18; TEMP 98.1
--- NOTE | 2019-01-23 10:21 | PCM.PYCHDC ---
Mental Status Examination - Mental Status Examination Orientation: Person, Place, Situation, Time Mood: Neutral Affect: Broad Speech: Appropriate Formal Thought Process: Circumstantial Description of patient's judgement and insight: Fair I/J; patient as baseline of functioning Psychotic Thoughts and Behaviors: No acute AH/VH/paranoia/delusions Suicidal Ideation: No Current Homicidal Ideation?: No Discharge Summary - Discharge Note Reason for Hospitalization: 78 yo female w/ h/o schizophrenia presented w/ worsening irritability and acute paranoia. Consultations:: List each consultation separately and include: 1. Reason for request. 2. Findings. 3. Follow-up Consultations: Medicine consult Summary of Hospital Course include:: 1. Description of specific treatment plan utilized for patients during their course of treatmen. 2. Summarize the time- course for resolution of acute symptoms and/or regressed behaviors. 3. Describe issues identified and worked on during hospitalization. 4. Describe medication utilized. 5. Describe medical problems identified and treated. 6. Reassessment of suicide risk Summary of Hospital Course: Patient was admitted to the psychiatry unit. Individual and group therapy were provided. Patient was stabilized on Risperdal. She denies acute AH/VH/paranoia/SI/HI. Patient requested to be discharged from the hospital, was screened for involuntary psychiatric admission and found to not meet criteria for involuntary psychiatric commitment. Patient will be discharged as she is not an acute danger to herself or others. Patient currently A + O x 4. Patient spoken to during this admission, using [place] distance learning technician Twyla [id number]. - Diagnosis (1) Schizophrenia Current Visit: Yes Status: Chronic - Final Diagnosis (DSM 5) Condition upon Discharge: STABLE DSM 5: Schizophrenia Disposition: AGAINST MEDICAL ADVICE Follow-up Treatment Plan: Schizophrenia -Continue Risperdal Prescriptions/Medication Reconciliation: risperiDONE [RisperDAL Tab] 1 mg PO Q12 #60 tab - Smoking Cessation Smoking Cessation Medication prescribed: No Reason for not providing: Not indicated - Antipsychotic Medications Pt discharged on 2 or more routine antipsychotic medications: No
== END 2019-01-23 13:50 | disposition left against medical advice (07) | DRG 885 ==
LOC: H.ER 06:01 → H.ERHOLD 11:18 → H.STEP 13:31
PROVIDERS: ADMIT Psychiatry & Neurology Psychiatry; ATTEND Psychiatry & Neurology Psychiatry
PROC: GZHZZZZ Group Psychotherapy (ICD-10-PCS; principal; 2019-01-12)
PROC: GZ58ZZZ Individual Psychotherapy, Cognitive-Behavioral (ICD-10-PCS; 2019-01-12)
DX: F20.9 Schizophrenia, unspecified (principal); N39.0 Urinary tract infection, site not specified; F01.50 Vascular dementia, unspecified severity, without behavioral disturbance, psychotic disturbance, mood disturbance, and anxiety; I10 Essential (primary) hypertension; Z91.83 Wandering in diseases classified elsewhere; Z59.0 Homelessness